=== PATIENT | female | born 1935 | race Caucasian/White ===

== ENCOUNTER 2022-04-14 23:13 | Emergency (ER) | payer OTHER, MEDICARE ==
[~2022-04-14] VITALS: Ht 157.5 cm; Wt 49.9 kg
[~2022-04-14 23:13] MED LIST: ATENOLOL50 MG PO; BENECAR; BENEFIBER1 EAC1 PO; CALCIUM500 MG PO; CARBIDOPA; CEPHALEXIN500 MG PO; CLONIDINE HCL0.1 MG PO; CO Q-10100 MG PO; DILTIAZEM 24HR180 M2 PO; ESTRADIOL0.5 MG PO; FRESHKOTE15 ML OPTH; GUAIFENESIN600 MG PO; LEVODOPA; LEVOTHYROXINE100 MCG PO; LOSARTAN POTAS100 MG PO; LOTEMAX5 ML OPTH; LOVASTATIN20 MG PO; LYRICA50 MG PO; MELATONIN3 M1 PO; NORCO 5-325 TA1 EACH PO; PREMARIN0.3 MG PO; PROPRANOLOL HCL60 MG PO; RESTASIS1 DROP OD; SALAGEN5 MG PO; THYROID PO; VITAMIN D-32000 UNIT PO
== END 2022-04-15 01:37 | disposition home or self-care (01) ==
LOC: ED 23:13
DX: S00.03XA Contusion of scalp, initial encounter (principal); W01.10XA Fall on same level from slipping, tripping and stumbling with subsequent striking against unspecified object, initial encounter; G43.909 Migraine, unspecified, not intractable, without status migrainosus; I10 Essential (primary) hypertension; Z88.0 Allergy status to penicillin; Z88.8 Allergy status to other drugs, medicaments and biological substances; Z79.899 Other long term (current) drug therapy
CPT/HCPCS: 70450; 72125; 99284-25; A9270

== ENCOUNTER 2022-10-11 16:43 | Emergency (ER) | payer MEDICARE, OTHER ==
[~2022-10-11] VITALS: Ht 157.5 cm; Wt 52.2 kg
[2022-10-11] MEDS ORDERED: LOSARTAN POTASS25 MG PO (17:36)
== END 2022-10-11 18:40 | disposition home or self-care (01) ==
LOC: ED 16:43
DX: I16.0 Hypertensive urgency (principal); I10 Essential (primary) hypertension; G43.909 Migraine, unspecified, not intractable, without status migrainosus; Z88.0 Allergy status to penicillin; Z88.8 Allergy status to other drugs, medicaments and biological substances; Z79.899 Other long term (current) drug therapy
CPT/HCPCS: 99283; A9270